=== PATIENT | male | born 2000 | race Caucasian/White ===

== ENCOUNTER 2019-09-15 16:40 | Emergency (ER) | payer BC ==
[2019-09-15] MEDS ORDERED: Ondansetron INJ* 2 MG/ML VIAL IV ONE (21:46)
[2019-09-15] MEDS ORDERED: NS 0.9% 1000 ML** 1,000 ML IV ONE (21:46)
[2019-09-15] MEDS ORDERED: Ketorolac INJ* 30 MG/ML 1 ML VIAL IV PUSH ONE (21:48)
[2019-09-15] MEDS ORDERED: Piperacillin/Tazobac ADVAN(*) 3.375 GM in NS 0.9% 100 ML* 100 ML IVPB ONE (21:49)
--- NOTE | 2019-09-15 21:50 | ED ---
Throat Pain/Nasal Congestion - HPI Summary HPI Summary: This pt is a 18 Y/O M presenting to [facility] accompanied by his friend with a CC o a sore throat due to complications from mono. He states that his symptoms are progressively getting worse and he is unable to eat solids and has had pain with drinking water. He states that his throat soreness is rated a 7/10 and has had an associated fever, congestion, increased mucus production, and a decrease in appetite. He states that he was diagnosed from [facility] on Wednesday09/11/19 and was given Prednisone and APAP today to help with the symptoms. He states that he is not having any relief with his symptoms after taking the medications. He denies any N/V/D, headaches, and coughs. He states that he has no aggravating or alleviating factors. He has a PMHx of lactose intolerance. - History of Current Complaint Chief Complaint: EDThroatPain Time Seen by Provider: 09/15/19 21:16 Hx Obtained From: Patient Onset/Duration: Sudden Onset, Lasting Days - 4, Still Present Severity: Moderate - 7/10 Associated Signs And Symptoms: Positive: Sinus Discomfort Cough: None Related History: Other (Noted In Comments) - Was diagnosed with mono on wednesday09/11/19 - Allergies/Home Medications Allergies/Adverse Reactions: Allergies Allergy/AdvReac Type Severity Reaction Status Date / Time lactose Allergy GI Upset Verified 09/15/19 16:50 Home Medications: Home Medications Acetaminophen [Tylenol] 650 mg PO Q4H PRN 09/15/19 [History Confirmed 09/15/19] Ibuprofen 600 mg PO Q6H PRN 09/15/19 [History Confirmed 09/15/19] predniSONE [Prednisone 20 MG TAB] 60 mg PO DAILY 09/15/19 [History Confirmed 03/29] PMH/Surg Hx/FS Hx/Imm Hx Previously Healthy: Yes Endocrine/Hematology History: Denies: Hx Diabetes Cardiovascular History: Denies: Hx Hypertension Respiratory History: Denies: Hx Asthma Sensory History: Denies: Hx Contacts or Glasses Opthamlomology History: Denies: Hx Contacts or Glasses - Cancer History Hx Chemotherapy: No Hx Radiation Therapy: No - Surgical History Surgical History: Yes Surgery Procedure, Year, and Place: Tooth pulled 2011. eye surgery 2011 - Immunization History Immunizations Up to Date: Yes Infectious Disease History: No Infectious Disease History: Denies: Traveled Outside the [place] in Last 30 Days - Family History Known Family History: Positive: Renal Disease - Kidney failure on maternal, Other - CA on paternal - Social History Occupation: Student - [employer] Lives: Dormitory/Roommates Alcohol Use: Rare Hx Substance Use: No Substance Use Type: Reports: None Hx Tobacco Use: No Smoking Status (MU): Never Smoked Tobacco Review of Systems - ROS Summary Review of Systems Summary: Home Medications Medication Instructions Recorded Confirmed Type Acetaminophen [Tylenol] 650 mg PO Q4H PRN 09/15/19 09/15/19 History Ibuprofen 600 mg PO Q6H PRN 09/15/19 09/15/19 History predniSONE [Prednisone 20 MG TAB] 60 mg PO DAILY 09/15/19 09/15/19 History Positive: Fever Positive: Sore Throat, Other - sinus congestion, states increased mucus production Negative: Cough Gastrointestinal: Other - PPOSITIVE: increased appetite Negative: Vomiting, Diarrhea, Nausea Negative: Headache All Other Systems Reviewed And Are Negative: Yes Physical Exam - Summary Physical Exam Summary: General: Well-developed, Well-nourished male. Mildly ill appearing. HEENT: Normocephalic, Atraumatic. Eyes: Conjuctiva normal, PERRL. Ears: TMs within normal limits. Nares: (-) discharge, (-) erythema. Oropharynx: Clear, mucous membranes moist, Positive cervical and posterior lymphadenopathy of the neck, very erythematous with swollen uvula, kissing tonsils with huge packets of pus, No trismus, difficulty and limited opening of mouth or jaw Neck: Soft, FROM, (-) lymphadenopathy, (-) thyromegaly, (-) JVD. Cardiovascular: Normal sinus rhythm, (-) murmur. Lungs: Clear to auscultation bilaterally (-) wheezes, (-) rales, (-) rhonchi. Abdomen: Soft, non-tender, non-distended, (-) organomegaly, normal bowel sounds. Back: (-) CVA tenderness Extremities: No edema. Skin: Warm, dry, (-) rash. Neuro: Alert and oriented x3, no focal deficits. Psychiatric: Mood normal, affect normal. Triage Information Reviewed: Yes Vital Signs On Initial Exam: Initial Vitals Temp Pulse Resp BP Pulse Ox 97.7 F 130 18 138/79 96 09/15/19 16:48 09/15/19 16:48 09/15/19 16:48 09/15/19 16:48 09/15/19 16:48 Vital Signs Reviewed: Yes Procedures - Sedation Patient Received Moderate/Deep Sedation with Procedure: No Diagnostics - Vital Signs Vital Signs Temp Pulse Resp BP Pulse Ox 09/15/19 18:44 99.4 F 98 18 128/89 98 09/15/19 16:48 97.7 F 130 18 138/79 96 - Laboratory Result Diagrams: 09/15/19 21:53 09/15/19 21:53 Lab Statement: Any lab studies that have been ordered have been reviewed, and results considered in the medical decision making process. EENT Course/Dx - Course Course Of Treatment: 18-year-old male presents with difficulty swallowing secondary to throat pain. Dehydration. Diagnosed with mono earlier this week. Patient was seen again today and was started on prednisone. Continues to feel worse. Rapid strep is negative. Patient does have significant erythema and swelling in his posterior pharynx. Given IV fluids, Zofran, Toradol with significant improvement. Patient is able to drink fluids and eat crackers. Discharged home. Continue steroids. Follow sooner for any worsening symptoms. - Diagnoses Provider Diagnoses: Mononucleosis, Throat pain Discharge ED - Sign-Out/Discharge Documenting (check all that apply): Patient Departure - discharge - Discharge Plan Condition: Stable Disposition: HOME Patient Education Materials: Mononucleosis (ED), Pharyngitis (ED) Referrals: [facility] @ [Outside] - 2 Days Additional Instructions: PLEASE FOLLOW UP WITH [facility] IN THE NEXT 1-3 DAYS. RETURN TO THE EMERGENCY DEPARTMENT FOR ANY NEW OR WORSENING SYMPTOMS. 3 Ibuprofen taken 3 times a day with food. Start when you wake up. - Billing Disposition and Condition Condition: STABLE Disposition: Home - Attestation Statements Document Initiated by Scribe: Yes Documenting Scribe: Jaziel Artis Provider For Whom Edgard is Documenting (Include Credential): Kellie Parada MD Scribe Attestation: Jaziel Coronado, scribed for Kellie Parada MD on 09/16/19 at 1952. Scribe Documentation Reviewed: Yes Provider Attestation: The documentation as recorded by the Jaziel villalobos accurately reflects the service I personally performed and the decisions made by me, Kellie Parada MD Status of Scribe Document: Viewed
[2019-09-15 22:00] LABS: ABS Lymphocytes 2.6 10^3/ul (1.0-4.8); ABS Monocytes 0.3 10^3/ul (0-0.8); ABS Neutrophils 8.8 10^3/ul (1.5-7.7); Hematocrit 49 % (42-52); Hemoglobin 17.1 g/dL (14.0-18.0); Lymphocyte % 22.3 %; Mean Corpuscular HGB Conc 35 g/dL (31-36); Mean Corpuscular Hemoglobin 32 pg (27-31); Mean Corpuscular Volume 92 fL (80-94); Mean Platelet Volume 7.7 fL (7.4-10.4); Nucleated Red Blood Cells % 0.1; Platelet Count 201 10^3/uL (150-450); Red Blood Count 5.36 10^6 /uL (4.18-5.48); Red Cell Distribution Width 13 % (10-15); White Blood Count 11.8 10^3/uL (3.5-10.8)
[2019-09-15 22:08] LABS: Rapid Strep Molecular Negative (Negative)
[2019-09-15 22:17] LABS: Albumin 4.3 g/dL (3.2-5.2); Albumin/Globulin Ratio 1.1 (1-3); BUN/Creatinine Ratio 9.2 (8-20); C Reactive Protein 188.99 mg/L (<8.01); Calcium 9.9 mg/dL (8.6-10.3); EGFR African American 105.4 (>60); EGFR Non-African American 87.1 (>60); Globulin 3.9 g/dL (2-4); Potassium 4.3 mmol/L (3.5-5.0); Total Bilirubin 0.6 mg/dL (0.2-1.0); Total Protein 8.2 g/dL (6.4-8.9)
[2019-09-15 22:21] LABS: INR 1.28 (0.82-1.09)
[2019-09-16 00:18] VITALS: BP 139/79
== END 2019-09-16 00:10 | disposition home or self-care (01) ==
LOC: ED 16:40
DX: B27.90 Infectious mononucleosis, unspecified without complication (principal); R07.0 Pain in throat; Z91.011 Allergy to milk products
CPT/HCPCS: 36415; 80053; 83605; 85025; 85610; 86140; 87651; 96361; 96365; 96375; 99283; J1885; J2405; J2543